=== PATIENT | female | born 1960 | race Caucasian/White ===

== ENCOUNTER 2016-10-20 13:23 | Outpatient (CLI) | payer OTHER ==
--- NOTE | 2016-10-21 14:21 | Mammography Report ---
DIGITAL SCREENING MAMMOGRAM: 10/20/2016 CLINICAL INDICATION: A 56-year-old, for screening. COMPARISON: 09/2015, 05/2006, 05/2005. TECHNIQUE: Routine CC and MLO projections were obtained of the breasts. Bilateral laterally exaggera kim craniocaudal views. FINDINGS: Parenchymal tissue within the breasts is predominantly fatty replaced. There are no domina nt masses, suspicious microcalcifications, or secondary signs of malignancy. In comparison to the pre vious studies, there are no significant changes. IMPRESSION: NO MAMMOGRAPHIC EVIDENCE OF MALIGNANCY. NO SIGNIFICANT INTERVAL CHANGES. RECOMMENDATION: Screening mammography is recommended annually. BIRADS category 1 - negative. STANDARD QUALIFYING STATEMENTS 1. This examination was reviewed with the aid of Computed-Aided Detection (CAD). 2. A negative or benign imaging report should not delay biopsy if clinically suspicious findings are present. Consider surgical consultation if warranted. More than 5% of cancers are not identified by i maging. 3. Dense breasts may obscure an underlying neoplasm. JOB #: [id number] EXT JOB #:[id number]
== END 2016-10-20 13:24 | disposition home or self-care (01) ==
LOC: DI.S 13:23
PROVIDERS: ATTEND Internal Medicine
DX: Z12.31 Encounter for screening mammogram for malignant neoplasm of breast (principal)
CPT/HCPCS: 77067

== ENCOUNTER 2017-10-18 09:56 | Emergency (ER) | payer OTHER ==
[2017-10-18] MEDS ORDERED: KETOROLAC 60 MG/2 ML VIAL IM STA (10:56)
--- NOTE | 2017-10-18 10:57 | ED Physician Documentation ---
PD HPI LOWER EXT INJURY - Stated complaint Stated Complaint: LT FT PX - Chief complaint Chief Complaint: Ext Problem - History obtained from History obtained from: Patient - History of Present Illness PD HPI LOW EXT INJURY LOCATION: Left, Foot Type of injury: Other (neuropathy) Where injury occurred: Home Timing - onset: How many weeks ago (5) Timing - duration: Weeks (5) Timing - details: Gradual onset, Still present Improved by: Rest, Immobilization Worsened by: Moving, Palpating Associated symptoms: Numbness, Tingling. No: Weakness, Swelling Similar symptoms before: Has not had sx before Recently seen: Not recently seen - Additional information Additional information: 57-year-old type II diabetic female has developed some pain in her left foot. She states that this is been going on for about 5 weeks and she does not know of any specific injury to the foot. She does have some neuropathy with some numbness to the sole of the foot on that side and she does acknowledge that she was unable to sleep last night secondary to to the pain. She states that she is in tears most of the time because of this pain in her foot. Review of Systems Constitutional: denies: Fever, Chills Eyes: denies: Decreased vision Ears: denies: Ear pain, Drainage/discharge Nose: denies: Congestion Throat: denies: Sore throat Respiratory: denies: Cough GI: denies: Vomiting : denies: Dysuria Skin: denies: Rash Musculoskeletal: reports: Extremity pain, Joint pain, Pain with weight bearing. denies: Neck pain, Back pain Neurologic: reports: Numbness. denies: Generalized weakness, Focal weakness PD PAST MEDICAL HISTORY - Past Medical History Past Medical History: Yes Cardiovascular: Hypertension - Present Medications Home Medications: Ambulatory Orders Medication Instructions Recorded Confirmed Aspirin [Adult Aspirin] 81 DAILY 10/18/17 HYDROcod/ACETAM 5/325 [[place] 5/325] 1 - 2 ea PO Q6H PRN #15 tablet 10/18/17 Lisinopril/Hydrochlorothiazide 20 DAILY 10/18/17 [Lisinopril-Hctz 20-25 mg Tab] Metoprolol Succinate 25 BID 10/18/17 Pravastatin [Pravachol] 20 DAILY 10/18/17 metFORMIN [Glucophage] 850 BID 10/18/17 - Allergies Allergies/Adverse Reactions: Allergies Allergy/AdvReac Type Severity Reaction Status Date / Time Penicillins Allergy Mild Rash Verified 10/18/17 10:13 - Social History Does the pt smoke?: No Smoking Status: Never smoker PD ED PE NORMAL - Vitals Vital signs reviewed: Yes (hypertensive ) - General General: Alert and oriented X 3, No acute distress, Well developed/nourished - HEENT HEENT: Atraumatic, PERRL, EOMI - Neck Neck: Supple, no meningeal sign - Respiratory Respiratory: No respiratory distress - Derm Derm: Normal color, Warm and dry, No rash - Extremities Extremities: No deformity, No edema, Other (There is mild tenderness to the dorsum of the left foot. There is no obvious deformitiy and the distal n/v is intact. The ankle is without evidence of injury. ) - Neuro Neuro: No motor deficit, No sensory deficit Eye Opening: Spontaneous Motor: Obeys Commands Verbal: Oriented GCS Score: 15 - Psych Psych: Normal mood, Normal affect Results - Vitals Vitals: Vital Signs - 24 hr 10/18/17 10:08 Temperature 36.9 C Heart Rate 80 Respiratory 16 Rate Blood Pressure 140/77 H O2 Saturation 97 Oxygen O2 Source Room air - Rads (name of study) left foot Radiology: Prelim report reviewed (Impression: No acute osseous abnormality is demonstrated.), EMP read indepedently, See rad report PD MEDICAL DECISION MAKING - ED course Complexity details: reviewed results, re-evaluated patient, considered differential, d/w patient ED course: 57-year-old female with pain on the dorsum of the left foot that is severe and is keeping her awake at night has no known injury to the area. X-ray of the areas without evidence of fracture to the bone or abnormality to the bone. My concern when I initially evaluated the patient was for the possibility of development of [id number] and I did not find this on the x-ray exam. She is treated with Toradol 60 mg IM without change in her pain. We have placed her into a walking boot which helps only mildly. She has appointment to see her primary care doctor in 2 weeks and we will have her see the orthopedic doctor as well as I am uncertain about a specific diagnosis and the patient has symptoms for extended period of time. Departure - Departure Disposition: 01 Home, Self Care Clinical Impression: Foot pain, left Condition: Stable Instructions: ED Muscle Pain Leg Cramps Follow-Up: Reshma Cunningham MD [Primary Care Provider] - [facility] [Provider Group] Prescriptions: HYDROcod/ACETAM 5/325 [[place] 5/325] 1 - 2 ea PO Q6H PRN #15 tablet PRN Reason: Pain
--- NOTE | 2017-10-18 11:42 | XRAY Preliminary Report ---
Exam: XR FOOT 3 VIEW LT IMPRESSION: No acute osseous abnormality is demonstrated. [facility] SITE ID: [id number]
--- NOTE | 2017-10-18 11:42 | XRAY Report ---
EXAM: LEFT FOOT RADIOGRAPHY EXAM DATE: 10/18/2017 11:13 AM. CLINICAL HISTORY: Left foot pain. COMPARISON: None. TECHNIQUE: 3 views. FINDINGS: Bones: Bones appear slightly osteopenic. No fractures or bone lesions. Mild plantar spurring is prese nt. Joints: Minor degenerative changes are seen primarily in the first MTP joint and talonavicular joint. Soft Tissues: Normal. No soft tissue swelling. IMPRESSION: No acute osseous abnormality is demonstrated. [facility] Referring Provider Line: [phone] SITE ID: [id number]
[2017-10-18 12:37] VITALS: BP 163/80
== END 2017-10-18 12:53 | disposition home or self-care (01) ==
LOC: ED 09:56
DX: M79.672 Pain in left foot (principal); I10 Essential (primary) hypertension
CPT/HCPCS: 96372; 99283

== ENCOUNTER 2017-11-17 16:35 | Outpatient (CLI) | payer OTHER | END 2017-11-17 16:36 | disposition home or self-care (01) | LOC: LAB 16:35 | PROVIDERS: ATTEND Internal Medicine | DX: R60.9 Edema, unspecified (principal); I25.10 Atherosclerotic heart disease of native coronary artery without angina pectoris; R06.00 Dyspnea, unspecified | CPT/HCPCS: 36415; 83880 ==